=== PATIENT | male | born 1965 | race Caucasian/White ===

== ENCOUNTER 2024-03-30 05:16 | Emergency (ER) | payer MEDICAID ==
[~2024-03-30] VITALS: Ht 172.7 cm; Wt 93.5 kg
[2024-03-30] MEDS: ibuprofen 200mg tablet PO ONE (05:29)
[2024-03-30 06:48] VITALS: PULSE 85; PULSE 86; RESP 18; RESP 20; O2SAT 97; O2SAT 98
[2024-03-30] MEDS: ipratropium/albuterol 3ml nebule NEB ONE (06:50)
[2024-03-30 07:22] LABS: BASOPHILS % (AUTO) 0.5 % (0-1); EOSINOPHILS % (AUTO) 0 % (0-6); HEMOGLOBIN 12.8 g/dl (14.0-17.9); LYMPHOCYTES # (AUTO) 0.3 X10'3 (1.1-4.8); LYMPHOCYTES % (AUTO) 4.6 % (21-51); MEAN CORPUSCULAR HEMOGLOBIN 32.5 PG (27.0-31.0); MEAN CORPUSCULAR HGB CONC 34.6 g/dL (33.0-36.5); MEAN PLATELET VOLUME 7.4 FL (7.4-10.4); MONOCYTES # (AUTO) 0.5 X10'3 (0-0.9); MONOCYTES % (AUTO) 6.6 % (2-12); NEUTROPHILS # (AUTO) 6.3 X10'3 (1.8-7.7); NEUTROPHILS % (AUTO) 88.3 % (42-75); PLATELET COUNT 296 X10'3 (140-440); RED BLOOD COUNT 3.94 X10'6 (4.70-6.10); RED CELL DISTRIBUTION WIDTH 13.2 % (11.5-14.5); WHITE BLOOD COUNT 7.1 X10'3 (4.5-11.0)
[2024-03-30 07:24] LABS: ALBUMIN 3.9 G/DL (3.4-5.0); ANION GAP 10 (8-16); BLOOD UREA NITROGEN 10 MG/DL (7-18); BUN/CREATININE RATIO 7.6 (10.0-20.0); CALCIUM 8.9 MG/DL (8.5-10.1); CHLORIDE 101 MMOL/L (99-107); CREATININE 1.31 MG/DL (0.60-1.10); GLUCOSE 130 MG/DL (70-104); POTASSIUM 3.6 MMOL/L (3.5-5.1); SODIUM 138 MMOL/L (135-145); TOTAL CARBON DIOXIDE 27.5 MMOL/L (24-32); eCRCL 59 ML/MIN; eGFR 56 ML/MIN
[2024-03-30] MEDS: dexamethasone sod phosphate 10mg/ml inj PO STA (07:35)
[2024-03-30] MEDS: oseltamivir phos 75mg capsule PO ONE (08:17)
[2024-03-30] MEDS ORDERED: LISI10TA27 PO (08:27)
[2024-03-30] MEDS ORDERED: TAM75C PO (08:27)
[2024-03-30] MEDS ORDERED: BENZ-38 PO (08:27)
[2024-03-30] MEDS ORDERED: ALBU18HF2 INH (08:27)
[2024-03-30 08:47] VITALS: BP 134/74; PULSE 80; RESP 16; TEMP 98.5; O2SAT 98
== END 2024-03-30 08:49 | disposition home or self-care (01) ==
LOC: ER 05:17
DX: J10.1 Influenza due to other identified influenza virus with other respiratory manifestations (principal); Z20.822 Contact with and (suspected) exposure to COVID-19
CPT/HCPCS: 36415; 71045; 80048; 84145; 85025; 87502; 87503; 87811; 94640; 99284; J1100

== ENCOUNTER 2024-08-12 10:04 | Emergency (ER) | payer MEDICAID ==
[~2024-08-12] VITALS: Ht 170.2 cm; Wt 91.8 kg
[~2024-08-12 10:04] MED LIST: ALBU18HF2 INH; LISI10TA27 PO
[2024-08-12 10:10] VITALS: TEMP 97.8
[2024-08-12 10:36] LABS: BASOPHILS % (AUTO) 0.4 % (0-1); EOSINOPHILS % (AUTO) 0.2 % (0-6); HEMATOCRIT 40.9 % (42.0-52.0); LYMPHOCYTES # (AUTO) 1.2 X10'3 (1.1-4.8); LYMPHOCYTES % (AUTO) 11.1 % (21-51); MEAN CORPUSCULAR HEMOGLOBIN 31.1 PG (27.0-31.0); MEAN CORPUSCULAR HGB CONC 34.2 g/dL (33.0-36.5); MEAN PLATELET VOLUME 7.2 FL (7.4-10.4); MONOCYTES # (AUTO) 0.5 X10'3 (0-0.9); MONOCYTES % (AUTO) 5.1 % (2-12); NEUTROPHILS # (AUTO) 8.7 X10'3 (1.8-7.7); NEUTROPHILS % (AUTO) 83.2 % (42-75); PLATELET COUNT 373 X10'3 (140-440); RED BLOOD COUNT 4.49 X10'6 (4.70-6.10); RED CELL DISTRIBUTION WIDTH 13.2 % (11.5-14.5); WHITE BLOOD COUNT 10.5 X10'3 (4.5-11.0)
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
[2024-08-12 10:48] LABS: ALANINE AMINOTRANSFERASE 32 U/L (12-78); ALBUMIN 3.8 G/DL (3.4-5.0); ALBUMIN/GLOBULIN RATIO 1.2 (1.1-1.5); ALKALINE PHOSPHATASE 103 IU/L (46-116); ANION GAP 10 (8-16); ASPARTATE AMINO TRANSFERASE 24 U/L (10-37); BILIRUBIN,TOTAL 0.2 MG/DL (0.1-1.0); BLOOD UREA NITROGEN 10 MG/DL (7-18); BUN/CREATININE RATIO 11.6 (10.0-20.0); CALCIUM 8.5 MG/DL (8.5-10.1); CHLORIDE 104 MMOL/L (99-107); CREATININE 0.86 MG/DL (0.60-1.10); GLUCOSE 102 MG/DL (70-104); POTASSIUM 3.9 MMOL/L (3.5-5.1); PRO BRAIN NATRIURETIC PEPTIDE 124 PG/ML (0-125); SODIUM 143 MMOL/L (135-145); TOTAL CARBON DIOXIDE 29.4 MMOL/L (24-32); TOTAL PROTEIN 6.9 G/DL (6.4-8.2); eCRCL 88 ML/MIN; eGFR > 90 ML/MIN
--- NOTE | 2024-08-12 11:06 | RADIOLOGY REPORT ---
CHEST RADIOGRAPH Indication: CP Technique: Single frontal view of the chest was obtained Comparison: DI CHEST,SINGLE VIEW on DOS: 03/30/24 FINDINGS: Lines and Tubes: None Lungs: No focal consolidation. Pleura: No effusion. No pneumothorax. Cardiomediastinal contours: Unremarkable Bones: No acute osseous abnormality. IMPRESSION: 1. No acute cardiopulmonary disease.
[2024-08-12] MEDS: normal saline 1000ML IV soln IVB ONE (14:12)
[2024-08-12] MEDS: ketorolac trometh 15mg/ml vial 15 MG/ML ML IV ONE (14:13)
[2024-08-12 16:11] VITALS: O2SAT 96
[2024-08-12 16:51] VITALS: BP 147/86; PULSE 74; RESP 11
--- NOTE | 2024-08-12 18:16 | ELECTROCARDIOGRAPH REPORT ---
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
== END 2024-08-12 16:49 | disposition home or self-care (01) ==
LOC: ER 10:04
DX: S29.8XXA Other specified injuries of thorax, initial encounter (principal); F10.129 Alcohol abuse with intoxication, unspecified; Z59.00 Homelessness unspecified; Z79.899 Other long term (current) drug therapy; Y90.9 Presence of alcohol in blood, level not specified; W18.30XA Fall on same level, unspecified, initial encounter; Y93.89 Activity, other specified; Y92.89 Other specified places as the place of occurrence of the external cause; Y99.8 Other external cause status
CPT/HCPCS: 36415; 71045; 80053; 83880; 84484; 85025; 93005; 96361; 96374; 99285; J1885; J7030

== ENCOUNTER 2024-10-06 17:55 | Inpatient (IN) | payer MEDICAID ==
[~2024-10-06] VITALS: Ht 170.2 cm; Wt 84.1 kg
--- NOTE | 2024-10-06 18:26 | ELECTROCARDIOGRAPH REPORT ---
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
[2024-10-06 18:28] LABS: MEAN PLATELET VOLUME 7.1 FL (7.4-10.4); RED CELL DISTRIBUTION WIDTH 13.3 % (11.5-14.5)
[2024-10-06 18:34] LABS: CREATININE 0.95 MG/DL (0.60-1.10); ETHANOL 43 MG/DL (<10); TOTAL CARBON DIOXIDE 25.1 MMOL/L (24-32); eCRCL 78 ML/MIN; eGFR 81 ML/MIN
[2024-10-06 18:38] LABS: APTT 34 SECONDS (22-32); INR 1.0 INR
--- NOTE | 2024-10-06 18:46 | RADIOLOGY REPORT ---
CT CT STROKE ALERT Indication: Stroke Alert EXAM DATE: 10/06/2024 06:16 PM COMPARISON: None TECHNIQUE: CT of the head without intravenous contrast. RADIATION DOSE: CTDIvol: 56 mGy, DLP: 1026 mGy*cm FINDINGS: Examination is degraded by motion. There is no intracranial hemorrhage. There is no extra-axial fluid, mass, mass effect or midline shif t. The ventricles are midline and normal in size. Basilar cisterns are patent. There are moderate per iventricular and subcortical white matter chronic microvascular ischemic changes. Mild global cerebra l volume loss. 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 The paranasal sinuses and mastoids are well-pneumatized. Imaged portion of the orbits are unremarkabl e. IMPRESSION: No intracranial hemorrhage or mass effect. Moderate chronic microvascular ischemic changes. Mild global cerebral volume loss.
--- NOTE | 2024-10-06 19:05 | RADIOLOGY REPORT ---
CHEST RADIOGRAPH Indication: Stroke Alert Technique: Single frontal view of the chest was obtained Comparison: DI CHEST,SINGLE VIEW on DOS: 08/12/24, DI CHEST,SINGLE VIEW on DOS: 03/30/24 FINDINGS: Lines and Tubes: None Lungs: No focal consolidation. Pleura: No effusion. No pneumothorax. Cardiomediastinal contours: Unremarkable Bones: No acute osseous abnormality. IMPRESSION: No acute cardiopulmonary disease.
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
[2024-10-06] MEDS: aspirin 81mg, enteric-coated 1 TAB TABLET.DR PO ONE (20:57)
[2024-10-06] MEDS: clopidogrel 300mg tablet PO ONE (21:05)
[2024-10-06] MEDS ORDERED: magnesium sulf-water 2g/50mL 50 ML IV PRN (21:15)
[2024-10-06] MEDS ORDERED: bisacodyl 10mg suppository rectal RC PRN (21:15)
[2024-10-06] MEDS ORDERED: ondansetron/PF 4mg/2ml inj IV PRN (21:15)
[2024-10-06] MEDS ORDERED: potassium Cl 40MEQ/1/2NS 520ml 520 ML IV PRN (21:15)
[2024-10-06] MEDS ORDERED: magnesium sulf-water 4G/100mL 100 ML IV PRN (21:15)
[2024-10-06] MEDS ORDERED: magnesium hydroxide 30ml (MOM) UD suspension PO PRN (21:15)
[2024-10-06] MEDS ORDERED: potassium Cl 20 mEq SR tablet PO PRN ×2 (21:15)
[2024-10-06] MEDS ORDERED: magnesium Cl slow-release 64mg tablet PO PRN (21:15)
[2024-10-06] MEDS ORDERED: mag hydrox/Alum hydrox/simeth 30ml oral suspension PO PRN (21:15)
[2024-10-06 21:47] LABS: PRO BRAIN NATRIURETIC PEPTIDE 162 PG/ML (0-125)
--- NOTE | 2024-10-06 22:01 | RADIOLOGY REPORT ---
INDICATION: suspected pontine stroke COMPARISON: None TECHNIQUE: CTA imaging of the head and neck was performed following the uneventful administration of intravenous contrast. Sagittal and coronal reformatted images were obtained from the source data. All CT scans at this medical facility are performed using dose modulation techniques as appropriate to a performed exam including the following: Automated exposure control was utilized; Adjustment of the M A And/or KV according to patient size; And use of iterative reconstruction technique. 3D MIP post-processing of the source data set was performed and reviewed by the radiologist. Radiation Dose Information: CT Dose: CTDI volume is 35 mGy. Dose-length product is 525 mGy*cm FINDINGS: 3 vessel arch. The subclavian artery are within normal limits. There is minimal plaque at the left ca rotid bulb extending into the left proximal internal carotid artery without significant stenosis. The petrous, cavernous and clinoid portions of the internal carotid artery are within normal limits. The anterior cerebral artery and middle cerebral arteries are within normal limits. The vertebral arteries are symmetric bilaterally. The basilar artery is patent. The posterior cerebra l arteries are within normal limits. The pica-aica complex appears unremarkable. Lung apices are unremarkable. No enlarged cervical lymph nodes. The bones are unremarkable. Moderate- severe degenerative changes within the cervical spine. IMPRESSION: 1. No acute vascular abnormality within the major vessels of the head or neck 2. Mild calcific plaque within the left carotid bulb extending to the left proximal internal carotid artery
[2024-10-06] MEDS: normal saline 1000ml 1,000 ML IV SCH (22:02)
[2024-10-06 22:51] VITALS: BP 148/94; PULSE 81; RESP 20; TEMP 97.7; O2SAT 96
[2024-10-07] VITALS (8 sets, daily range): BP systolic 149–170; BP diastolic 95–101; PULSE 65–74; RESP 15–20; TEMP 97.3–98.4; O2SAT 93–98
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
[2024-10-07] MEDS ORDERED: ipratropium/albuterol 3ml nebule NEB PRN (01:50)
[2024-10-07 02:30] LABS: LEUKOCYTE ESTERASE ,URINE NEGATIVE (Neg); NITRITES, URINE NEGATIVE (Neg); OCCULT BLOOD,URINE NEGATIVE (Neg)
[2024-10-07 02:31] LABS: UA COLLECTION TYPE CLN CATCH MIDSTREAM
[2024-10-07 02:41] LABS: URINE AMPHETAMINE SCREEN POSITIVE (Neg); URINE BARBITUATE SCREEN NEGATIVE (Neg); URINE BENZODIAZEPINES SCREEN NEGATIVE (Neg); URINE CANNABINOID SCREEN NEGATIVE (Neg); URINE COCAINE SCREEN NEGATIVE (Neg); URINE METHADONE SCREEN NEGATIVE (Neg); URINE OPIATE SCREEN NEGATIVE (Neg); URINE PHENCYCLIDINE SCREEN NEGATIVE (Neg)
[2024-10-07 06:13] LABS: MEAN PLATELET VOLUME 7.3 FL (7.4-10.4); RED CELL DISTRIBUTION WIDTH 13.3 % (11.5-14.5)
[2024-10-07 06:30] LABS: CHOL/HDL RATIO 3.1 (0.00-4.99); CREATININE 0.89 MG/DL (0.60-1.10); ETHANOL < 10 MG/DL (<10); LDL CHOLESTEROL 85 MG/DL (50-100); TOTAL CARBON DIOXIDE 28.0 MMOL/L (24-32); eCRCL 84 ML/MIN; eGFR 87 ML/MIN
[2024-10-07] MEDS: nicotine 7mg patch - 24hr TD SCH (07:52)
[2024-10-07] MEDS: docusate sod 100mg capsule PO SCH (07:53)
[2024-10-07] MEDS: aspirin 81mg, enteric-coated 1 TAB TABLET.DR PO SCH (07:53)
[2024-10-07] MEDS: K and/or MAG REPLACEMENT MC SCH (08:00)
[2024-10-07] MEDS: HYDROcodone/acetaminophen 5mg/325mg tablet PO PRN (08:01)
--- NOTE | 2024-10-07 09:47 | PROGRESS NOTE ---
Daily Progress Note Providers to CC No new complaint today resting comfortably in the bed ~ Central Line/PICC still needed: No Jones-Non Protocol Jones Indications Met/Not Met: F/C Indications Not Met Antibiotic Timeout Antibiotic Ordered?: No MRSA Education MRSA Education Provided to pt: No Subjective As above Objective Vital Signs Date Time Temp Pulse Resp B/P (MAP) Pulse Ox O2 Delivery O2 Flow Rate FiO2 10/07/24 08:01 16 10/07/24 07:53 65 10/07/24 03:41 93 Room Air* 0 21 10/07/24 02:00 98.2 149/96 (113) Vital signs, stable ,afebrile. Pulse Oximetry reflects adequate oxygenation. BMI is twenty-nine, weight 84 kg General: well developed, well nourished. Awake , alert, and oriented x4, resting comfortably in the bed, in no acute distress . Skin: Warm, dry, no pallor, no rash or petechiae. HEENT: Atraumatic, normocephalic, EOMI, anicteric sclera B; pink conjunctiva; PERRLA, normal oropharynx, moist oral and nasal mucosa. Tympanic membrane , nose , throat clear. Neck: Trachea midline. Supple, full range of motion, no JVD, bruit , hepatojugular reflex , lymphadenopathy or masses, or other lesions Cardiac: Regular rhythm, regular rate no murmurs, rubs, or gallops. Normal S1 and S2, no S3 noticed. PMI is normal. Respiratory: Equal breath sounds bilaterally, no tachypnea; lungs clear to auscultation bilaterally, no wheezing ,rub or rales, or crackles. Chest wall is symmetric and without deformity. No signs of trauma. Chest wall is nontender. No signs of respiratory distress. Resonance is normal upon percussion bilaterally. Gastrointestinal: Abdomen symmetric, non-distended, soft, non-tender, normal bowel sounds x4 quadrant, normoactive, no hepatosplenomegaly , no masses , no bruit, no flank pain bilaterally. No voluntary guarding, rebound, or rigidity. No tenderness to percussion. No pulsatile masses. Equal femoral pulses. No Gutiérrez's sign or McBurney point tenderness. Back; no CVA tenderness bilaterally, no deformities. Neck and back are without deformity as well. No tenderness noted on palpation of the spinous processes. Spinous processes are midline. Cervical, thoracic, and lumbar paraspinal muscles are not tender and are without spasm. : normal external genitalia, without lesions, swelling, masses or tenderness. Musculoskeletal: Extremities, normal range of motion, non-tender, muscle strength 5/5 x 4. Negative Homans signs bilaterally on lower extremity. Distal pulses full symmetrical, no clubbing, cyanosis , edema. Neurological: Speech is clear, alert, and oriented x 4. No motor or sensory deficit, deep tendon reflexes normal, cerebellar intact. Cranial nerves II-XII intact. Psych: Alert and or appropriate, normal affect. Vascular: Good distal pulses, which are equal x4; capillary refill less than 2 seconds. Lymphatic, no lymphadenopathy. 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 Moderate chronic microvascular ischemic changes. Mild global cerebral volume loss. CTA head and neck shows Mild calcific plaque within the left carotid bulb extending to the left proximal internal carotid artery Follow up with the MRI [facility] tele neurology consulted who recommended loading dose of aspirin and Plavix 300 mg followed by aspirin 81 mg and Plavix 75 mg for 21 days. Continue on antiplatelet agent either aspirin/Plavix thereafter. Follow up with lipid panel, A1c 5.4. Goal LDL less than 70. Started on atorvastatin 80 mg p.o. daily TSH WNL Neurochecks q.4 hours, follow up with Nephrology with the MRI results Hypertension, poor control History of COPD, not in exacerbation Continue home medication lisinopril 10 mg and duo nebs q.4 PRN. Permissive hypertension, maintain his BP less than 210/110 mmHg. 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 social media & mobile manager consult Nicotine patch 7 mg Code Status: DNR DVT Prophylaxis: Aspirin and Plavix Analgesia/Sedation: [place] p.r.n. Lines/Tubes: PIV Gi Prophylaxis: None Nutrition: Regular diet after passing swallow evaluation PT: Yes Prognosis: Guarded Sepsis Screening Reassessment Date: Oct 07, 2024 Date of Service: Oct 07, 2024 Billing Provider: DANN WHITNEY MD Common Visit Codes: [id number] INP/OBS CARE (HIGH) DANN WHITNEY MD Oct 07, 2024 09:47
--- NOTE | 2024-10-07 14:10 | CARDIOLOGY REPORT ---
APPROVED REPORT EXAM: Comprehensive 2D, Doppler, and color-flow Echocardiogram. Patient Location: 401 Blood Pressure: 149/96 mmHg Heart Rate: 67 bpm Indications CVA/TIA (Saline Bubble Study not Ordered) ProBNP: 162 NO MELTING SUPERVISOR No Previous ECHO 2D Dimensions LA Diam2.9 cm IVSd 0.8 (0.7-1.1cm) LVDd 5.3 cm PWd 0.8 (0.7-1.1cm) IVSs 1.4 (0.8-1.2cm) LVDs 3.0 (2.5-4.0cm) PWs 1.6 (0.8-1.2cm) LVOT Diameter 2.05 (1.8-2.4cm) LVEF(%) 74.4 (>50%) Ao Asc Diam.3.95 cm IVC 14.91 mmFS (%) 43.6 % SV 102.8 ml CO 7.0 L/min M-Mode Dimensions Left Atrium(MM) 3.57 (2.5-4.0cm) Aortic Root 3.98 (2.2-3.7cm) Aortic Cusp Exc 1.88 (1.5-2.0cm) MV EPSS 1.3 (<0.5cm) Aortic Valve AoV Peak Gregorio. 150.5 cm/s AoV VTI 26.7 cm AO Peak GR. 9.1 mmHg AO Mean GR. 6 mmHg LVOT VTI 23.39 cm LVOT Peak Gregorio. 120.1 cm/s PHILLIP(VTI)/BSA 2.89 cm2/m2 PHILLIP (VTI) 2.89 cm2 Mitral Valve MV E Velocity 52.4 cm/s MV Peak Gr. 1 mmHg MV DECEL TIME 188 ms MV A Velocity 69.8 cm/s MV PHT 72 ms E/A Ratio 0.8 MVA (PHT) 3.06 cm2 MV VMax56.0 cm/s TDI Lateral E' P. V10.47 cm/s E/Lateral E' 5.0 Tricuspid Valve TR P. Velocity 145 cm/s RAP ESTIMATE 10 mmHg TR Peak Gr. 8 mmHg RVSP 18 mmHg LEFT VENTRICLE Normal LV size and wall thickness. Overall systolic function is normal. Overall LVEF is 70-75%. RIGHT VENTRICLE RV is normal size and function. ATRIA The left atrium size is normal. AORTIC VALVE Trileaflet AV appears mildly sclerotic without stenosis. No insufficiency. MITRAL VALVE Mitral valve leaflets are mildly thickened with mild annular calcification. TRICUSPID VALVE The tricuspid valve is normal in structure with trace regurgitation. PULMONIC VALVE The pulmonary valve is normal in structure with physiologic insufficiency. GREAT VESSELS The aortic root is normal in size. The ascending aorta is normal in size. The IVC is normal in size a nd collapses >50% with inspiration. PERICARDIUM Normal pericardium. No effusion. Other Information Study Quality: Adequate Conclusion Overall LVEF is 70-75%. Normal LV size and wall thickness. Overall systolic function is normal. RV is normal size and function. Trileaflet AV appears mildly sclerotic without stenosis. No insufficiency. Mitral valve leaflets are mildly thickened with mild annular calcification. The tricuspid valve is normal in structure with trace regurgitation. The pulmonary valve is normal in structure with physiologic insufficiency. Normal pericardium. No effusion.
--- NOTE | 2024-10-07 18:43 | RADIOLOGY REPORT ---
EXAM: MR MRI HEAD CLINICAL HISTORY: Pontine stroke COMPARISON: CT head 10/06/2024 TECHNIQUE: Multiplanar, multisequence magnetic resonance imaging of the brain was performed without intravenous contrast. FINDINGS: 1 x 0.5 cm focus of diffusion restriction over the left paramedian inferior midbrain. Foci of T2 craig e through within the bilateral centrum semiovale . Study is limited by motion artifact, most notably the blood sensitive sequence. Mild diffuse brain at rophy. Moderate chronic small-vessel ischemic changes with bilateral basal ganglia , left thalamic and bilateral pontine chronic lacunar infarcts. No obvious hemorrhages, masses, mass effect, midline shift or herniation.No intra-axial or extra-axia l fluid collections. No evidence of hydrocephalus. The basal cisterns are patent. The vascular flow v oids maintained. The pituitary gland, sella and parasellar regions are unremarkable. The cerebellar tonsils are in no rmal position. The cerebellum is unremarkable. The orbits and globes are unremarkable. Minimal mucoperiosteal thickening of the ethmoid air cells. T he remainder of the paranasal sinuses and mastoids are clear. There are No worrisome calvarial lesion s. IMPRESSION: 1 x 0.5 cm focus of acute infarct over the left paramedian inferior midbrain.
[2024-10-07] MEDS ORDERED: albuterol 2.5 MG/3 ML nebule NEB PRN (20:00)
[2024-10-08 02:00] VITALS: BP 137/95; PULSE 70; RESP 20; TEMP 98; O2SAT 97
[2024-10-08 06:00] VITALS: BP 174/112; PULSE 66; RESP 18; TEMP 98.1; O2SAT 98
[2024-10-08 06:59] LABS: INR 1.0 INR
[2024-10-08 07:10] LABS: MEAN PLATELET VOLUME 7.3 FL (7.4-10.4); RED CELL DISTRIBUTION WIDTH 13.2 % (11.5-14.5)
[2024-10-08 07:13] LABS: CREATININE 0.97 MG/DL (0.60-1.10); PHOSPHORUS 2.5 MG/DL (2.3-4.5); TOTAL CARBON DIOXIDE 28.2 MMOL/L (24-32); eCRCL 77 ML/MIN; eGFR 79 ML/MIN
[2024-10-08 10:00] VITALS: BP 180/117; PULSE 78; RESP 18; TEMP 98.1; O2SAT 96
--- NOTE | 2024-10-08 11:44 | PROGRESS NOTE ---
Daily Progress Note Providers to CC No new complaint today, resting comfortably in the bed, had breakfast ~ Central Line/PICC still needed: No Jones-Non Protocol Jones Indications Met/Not Met: F/C Indications Not Met Antibiotic Timeout Antibiotic Ordered?: No MRSA Education MRSA Education Provided to pt: No Subjective As above Objective Vital Signs Date Time Temp Pulse Resp B/P (MAP) Pulse Ox O2 Delivery O2 Flow Rate FiO2 10/08/24 10:35 78 10/08/24 06:00 98.1 18 174/112 (132) 98 Room Air 10/07/24 11:56 0 21 Vital signs, stable ,afebrile. Pulse Oximetry reflects adequate oxygenation. Elevated blood pressure, secondary to permissive hypertension noticed General: well developed, well nourished. Awake , alert, and oriented x4, resting comfortably in the bed, in no acute distress . Skin: Warm, dry, no pallor, no rash or petechiae. HEENT: Atraumatic, normocephalic, EOMI, anicteric sclera B; pink conjunctiva; PERRLA, normal oropharynx, moist oral and nasal mucosa. Tympanic membrane , nose , throat clear. Neck: Trachea midline. Supple, full range of motion, no JVD, bruit , hepatojugular reflex , lymphadenopathy or masses, or other lesions Cardiac: Regular rhythm, regular rate no murmurs, rubs, or gallops. Normal S1 and S2, no S3 noticed. PMI is normal. Respiratory: Equal breath sounds bilaterally, no tachypnea; lungs clear to auscultation bilaterally, no wheezing ,rub or rales, or crackles. Chest wall is symmetric and without deformity. No signs of trauma. Chest wall is nontender. No signs of respiratory distress. Resonance is normal upon percussion bilaterally. Gastrointestinal: Abdomen symmetric, non-distended, soft, non-tender, normal bowel sounds x4 quadrant, normoactive, no hepatosplenomegaly , no masses , no bruit, no flank pain bilaterally. No voluntary guarding, rebound, or rigidity. No tenderness to percussion. No pulsatile masses. Equal femoral pulses. No Gutiérrez's sign or McBurney point tenderness. Back; no CVA tenderness bilaterally, no deformities. Neck and back are without deformity as well. No tenderness noted on palpation of the spinous processes. Spinous processes are midline. Cervical, thoracic, and lumbar paraspinal muscles are not tender and are without spasm. : normal external genitalia, without lesions, swelling, masses or tenderness. Musculoskeletal: Extremities, normal range of motion, non-tender, muscle strength 5/5 x 4. Negative Homans signs bilaterally on lower extremity. Distal pulses full symmetrical, no clubbing, cyanosis , edema. Neurological: Speech is clear, alert, and oriented x 4. No motor or sensory deficit, deep tendon reflexes normal, cerebellar intact. Cranial nerves II-XII intact. Psych: Alert and or appropriate, normal affect. Vascular: Good distal pulses, which are equal x4; capillary refill less than 2 seconds. Lymphatic, no lymphadenopathy. 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 Moderate chronic microvascular ischemic changes. Mild global cerebral volume loss. CTA head and neck shows Mild calcific plaque within the left carotid bulb extending to the left proximal internal carotid artery On MRI, consistent with left mid brain CVA acute Virtual neurology consult pending [facility] tele neurology consulted who recommended loading dose of aspirin and Plavix 300 mg followed by aspirin 81 mg and Plavix 75 mg for 21 days. Continue on antiplatelet agent either aspirin/Plavix thereafter. Follow up with lipid panel, A1c 5.4. Goal LDL less than 70. Started on atorvastatin 80 mg p.o. daily TSH WNL Neurochecks q.4 hours, follow up with Nephrology with the MRI results Hypertension, poor control History of COPD, not in exacerbation Continue home medication lisinopril 10 mg and duo nebs q.4 PRN. Permissive hypertension, maintain his BP less than 210/110 mmHg. Chronic methamphetamine abuse, including ongoing Acute amphetamine intoxication Chronic heavy alcohol use , including ongoing active tobacco use Substance abuse navigator, social service liaison consult Nicotine patch 7 mg Code Status: DNR DVT Prophylaxis: Aspirin and Plavix Analgesia/Sedation: [place] p.r.n. Lines/Tubes: PIV Gi Prophylaxis: None Nutrition: Regular diet after passing swallow evaluation PT: Yes Prognosis: Guarded Date of Service: Oct 08, 2024 Billing Provider: DANN WHITNEY MD Common Visit Codes: [id number] INP/OBS CARE(HIGH) DANN WHITNEY MD Oct 08, 2024 11:44
[2024-10-08 14:00] VITALS: BP 167/102; PULSE 74; RESP 14; TEMP 98.1; O2SAT 100
[2024-10-08 18:30] VITALS: BP 176/94; PULSE 73; RESP 21; TEMP 96.4; O2SAT 96
--- NOTE | 2024-10-08 21:59 | [facility] CONSULT REPORT ---
[facility] Procedure Note [facility] Procedure Note Consult [facility] Note # Demographics Consult Type: General Neurology Patient Location: Inpatient First Name: Kevin Last Name: Celso Date of : 1965 Age: 59 Gender: Male Facility: [facility] Time of Initial Page (): 10/08/2024 17:13 Time of Return Call (): 10/08/2024 17:13 # HPI History: 59yom who presented with new onset diplopia. MRI with L paramedian inferior midbrain infarct. # Scores Time of exam and NIHSS (): 10/08/2024 21:45 Level of Consciousness 1a: [0] = Alert; keenly responsive LOC Questions 1b: [0] = Answers both questions correctly LOC Commands 1c: [0] = Performs both tasks correctly Best Gaze 2: [0] = Normal Visual 3: [0] = No visual loss Facial Palsy 4: [1] = Minor paralysis Motor Arm Left 5a: [0] = No drift Motor Arm Right 5b: [0] = No drift Motor Leg Left 6a: [0] = No drift Motor Leg Right 6b: [0] = No drift Limb Ataxia 7: [0] = Absent Sensory 8: [0] = Normal Best Language 9: [0] = No aphasia Dysarthria 10: [1] = [id number] dysarthria Extinction and Inattention 11: [0] = No abnormality NIHSS Total: 2 # Exam Cranial Nerves: L VIANNEY # Data Head CT: - no bleed - per radiologist read - preliminarily reviewed by me, please refer to radiology read for official reading CTA Head: - no large vessel occlusion - per radiologist read MRI: acute infarct over L paramedian inferior midbrain # Assessment Impression: In patients presenting with high risk TIA or minor stroke, treatment for 21 days with dual antiplatelet therapy (aspirin and plavix) begun within 24 hours can be beneficial for early secondary stroke prevention (CHANCE 2013, POINT 2018). # Plan Thrombolytic/Intervention: NOT IV Thrombolysis or IA Intervention candidate Thrombolytic Exclusion: > 4.5 hours Intraarterial Exclusion: - clinical exam not consistent with presence of large vessel occlusion (LVO), can reconsider if LVO found on vascular imaging Labs: - lipid panel - hemoglobin A1c - CBC - basic metabolic panel - urine drug screen - troponin Diagnostic Test: - echo with bubble study Therapy/Evaluation: - PT/OT evaluation - speech/swallow consultation Medication: - start statin with goal of LDL < 70 - aspirin 81 mg PLUS clopidogrel (Plavix) 75 mg for 21 days, then monotherapy therafter Other: - If patient has any neurological deterioration please call me back immediately - permissive hypertension - telemetry monitoring - LDL < 70 - I have discussed my recommendations with the referring provider - provide smoking cessation resources and counseling to patient Additional Recommendations: - Risk factor modification, including smoking cessation and alcohol moderation if appropriate - Monitor glucose and correct as needed - Outpatient cardiac monitoring # Logistics Attestation of consult completion: The patient is located at: [facility]. Facility staff participated in the visit. I performed this telemedicine visit from my offsite office utilizing interactive 2 way audio and visual telecommunication technology. Total time spent in telemedicine encounter: I spent 23 minutes reviewing clinical data and/or imaging, obtaining history, examining the patient, communicating with the onsite care team, and in preparation of this report. # Demographics First Name: Kevin Last Name: Celso Facility: [facility] Neuro Consult Order placed for: Yes SAMUEL MONROE MD Oct 08, 2024 21:59
[2024-10-08 22:00] VITALS: BP 170/107; PULSE 72; RESP 15; TEMP 98.1; O2SAT 96
[2024-10-09] VITALS (12 sets, daily range): BP systolic 140–175; BP diastolic 86–115; PULSE 68–82; RESP 13–20; TEMP 97.2–99; O2SAT 93–97
[2024-10-09 06:47] LABS: MEAN PLATELET VOLUME 7.4 FL (7.4-10.4); RED CELL DISTRIBUTION WIDTH 13.3 % (11.5-14.5)
[2024-10-09 06:55] LABS: INR 1.0 INR
[2024-10-09 07:28] LABS: CREATININE 0.75 MG/DL (0.60-1.10); PHOSPHORUS 3.2 MG/DL (2.3-4.5); TOTAL CARBON DIOXIDE 23.7 MMOL/L (24-32); eCRCL 99 ML/MIN; eGFR > 90 ML/MIN
--- NOTE | 2024-10-09 15:34 | PROGRESS NOTE ---
Daily Progress Note Providers to CC Somnolent, resting comfortably in the bed, good appetite ~ Central Line/PICC still needed: No Jones-Non Protocol Jones Indications Met/Not Met: F/C Indications Not Met Antibiotic Timeout Antibiotic Ordered?: No MRSA Education MRSA Education Provided to pt: No Subjective As above Objective Vital Signs Date Time Temp Pulse Resp B/P (MAP) Pulse Ox O2 Delivery O2 Flow Rate FiO2 10/09/24 12:02 97.7 78 14 140/86 (104) 96 Room Air 10/07/24 11:56 0 21 Vital signs, stable ,afebrile. Pulse Oximetry reflects adequate oxygenation. General: well developed, well nourished. Awake , alert, and oriented x4, resting comfortably in the bed, in no acute distress . Skin: Warm, dry, no pallor, no rash or petechiae. HEENT: Atraumatic, normocephalic, EOMI, anicteric sclera B; pink conjunctiva; PERRLA, normal oropharynx, moist oral and nasal mucosa. Tympanic membrane , nose , throat clear. Neck: Trachea midline. Supple, full range of motion, no JVD, bruit , hepatojugular reflex , lymphadenopathy or masses, or other lesions Cardiac: Regular rhythm, regular rate no murmurs, rubs, or gallops. Normal S1 and S2, no S3 noticed. PMI is normal. Respiratory: Equal breath sounds bilaterally, no tachypnea; lungs clear to auscultation bilaterally, no wheezing ,rub or rales, or crackles. Chest wall is symmetric and without deformity. No signs of trauma. Chest wall is nontender. No signs of respiratory distress. Resonance is normal upon percussion bilaterally. Gastrointestinal: Abdomen symmetric, non-distended, soft, non-tender, normal bowel sounds x4 quadrant, normoactive, no hepatosplenomegaly , no masses , no bruit, no flank pain bilaterally. No voluntary guarding, rebound, or rigidity. No tenderness to percussion. No pulsatile masses. Equal femoral pulses. No Gutiérrez's sign or McBurney point tenderness. Back; no CVA tenderness bilaterally, no deformities. Neck and back are without deformity as well. No tenderness noted on palpation of the spinous processes. Spinous processes are midline. Cervical, thoracic, and lumbar paraspinal muscles are not tender and are without spasm. : normal external genitalia, without lesions, swelling, masses or tenderness. Musculoskeletal: Extremities, normal range of motion, non-tender, muscle strength 5/5 x 4. Negative Homans signs bilaterally on lower extremity. Distal pulses full symmetrical, no clubbing, cyanosis , edema. Neurological: Speech is clear, alert, and oriented x 4. No motor or sensory deficit, deep tendon reflexes normal, cerebellar intact. Cranial nerves II-XII intact. Psych: Alert and or appropriate, normal affect. Vascular: Good distal pulses, which are equal x4; capillary refill less than 2 seconds. Lymphatic, no lymphadenopathy. 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 Moderate chronic microvascular ischemic changes. Mild global cerebral volume loss. CTA head and neck shows Mild calcific plaque within the left carotid bulb extending to the left proximal internal carotid artery On MRI, consistent with left mid brain CVA acute Virtual neurology consult completed [facility] tele neurology consulted who recommended loading dose of aspirin and Plavix 300 mg followed by aspirin 81 mg and Plavix 75 mg for 21 days. Continue on antiplatelet agent either aspirin/Plavix thereafter. Follow up with lipid panel, A1c 5.4. Goal LDL less than 70. Started on atorvastatin 80 mg p.o. daily TSH WNL Neurochecks q.4 hours, follow up with Nephrology with the MRI results Hypertension, poor control History of COPD, not in exacerbation Continue home medication lisinopril 10 mg and duo nebs q.4 PRN. Permissive hypertension, maintain his BP less than 210/110 mmHg. Chronic methamphetamine abuse, including ongoing Acute amphetamine intoxication Chronic heavy alcohol use , including ongoing active tobacco use Substance abuse navigator, social sciences department chair consult Nicotine patch 7 mg Code Status: DNR DVT Prophylaxis: Aspirin and Plavix Analgesia/Sedation: [place] p.r.n. Lines/Tubes: PIV Gi Prophylaxis: None Nutrition: Regular diet after passing swallow evaluation PT: Yes Prognosis: Guarded Date of Service: Oct 09, 2024 Billing Provider: DANN WHITNEY MD Common Visit Codes: [id number] INP/OBS CARE(HIGH) DANN WHTINEY MD Oct 09, 2024 15:34
[2024-10-10] VITALS (10 sets, daily range): BP systolic 149–176; BP diastolic 99–120; PULSE 64–82; RESP 16–20; TEMP 97.3–99; O2SAT 93–100
[2024-10-10 05:55] LABS: INR 1.1 INR; MEAN PLATELET VOLUME 7.2 FL (7.4-10.4); RED CELL DISTRIBUTION WIDTH 13.3 % (11.5-14.5)
[2024-10-10 06:24] LABS: CREATININE 0.65 MG/DL (0.60-1.10); PHOSPHORUS 3.4 MG/DL (2.3-4.5); TOTAL CARBON DIOXIDE 24.6 MMOL/L (24-32); eCRCL 114 ML/MIN; eGFR > 90 ML/MIN
--- NOTE | 2024-10-10 20:37 | PROGRESS NOTE ---
Daily Progress Note Providers to CC ~ Antibiotic Timeout Antibiotic Ordered?: No Subjective Patient was seen in his room patient was strongly advised to be compliant with blood pressure medication and risk and consequences of uncontrolled blood pressure discussed with the patient in visit. Patient did physical therapy today and recommended home independent. Objective Vital Signs Date Time Temp Pulse Resp B/P (MAP) Pulse Ox O2 Delivery O2 Flow Rate FiO2 10/10/24 19:17 16 10/10/24 19:13 70 10/10/24 18:54 Room Air 10/10/24 18:00 97.4 173/104 (127) 96 10/10/24 07:35 0 21 Result Diagram: 10/10/24 0509 10/10/24 0438 General-patient not in any acute distress, alert awake oriented, chronically ill-appearing HEENT-atraumatic normocephalic, neck supple without elevated JVD, no thyromegaly or carotid bruit. No lymphadenopathy bilaterally. Eyes-no icterus or pallor seen in eyes Chest-clear to auscultation bilaterally, breathing nonlabored no tachypnea, no wheezing, no crepitation, no crackles. Heart-S1-S2 normal, regular heart rate no murmur Abdomen bowel sounds positive on auscultation, soft nondistended nontender no guarding, no rigidity Skin no active skin rash Neurology-grossly intact, nonfocal alert awake oriented, no focal neurological deficit noticed during exam Extremity- no pedal edema able to move all 4 extremities Psychiatry - patient is not confused or agitated cooperated during physical examination Coagulation Studies Laboratory Tests Test 10/06/24 18:16 10/10/24 05:09 Activated Partial Thromboplast Time 34 SECONDS (22-32) H Prothrombin Time 11.0 SECONDS (9.0-12.0) INR International Normalized Ratio 1.1 INR Coagulation Comments Problem\Assessment\Plan Assessment/Plan 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 Moderate chronic microvascular ischemic changes. Mild global cerebral volume loss. CTA head and neck shows Mild calcific plaque within the left carotid bulb extending to the left proximal internal carotid artery On MRI, consistent with left mid brain CVA acute Virtual neurology consult completed [facility] tele neurology consulted who recommended loading dose of aspirin and Plavix 300 mg followed by aspirin 81 mg and Plavix 75 mg for 21 days. Continue on antiplatelet agent either aspirin/Plavix thereafter. Follow up with lipid panel, A1c 5.4. Goal LDL less than 70. Started on atorvastatin 80 mg p.o. daily TSH WNL Neurochecks q.4 hours, follow up with Nephrology with the MRI results Hypertension, poor control History of COPD, not in exacerbation Continue home medication lisinopril 10 mg and duo nebs q.4 PRN. Permissive hypertension, maintain his BP less than 210/110 mmHg. Chronic methamphetamine abuse, including ongoing Acute amphetamine intoxication Chronic heavy alcohol use , including ongoing active tobacco use Substance abuse navigator, addiction social worker consult Nicotine patch 7 mg Code Status: DNR DVT Prophylaxis: Aspirin and Plavix Analgesia/Sedation: [employer] p.r.n. Lines/Tubes: PIV Gi Prophylaxis: None Nutrition: Regular diet after passing swallow evaluation PT: Yes Patient's current condition is guarded we will plan to discharge patient in a.m. Date of Service: Oct 10, 2024 Billing Provider: RACQUEL ELLIS MD Common Visit Codes: [id number] INP/OBS CARE(HIGH) RACQUEL ELLIS MD Oct 10, 2024 20:37
[2024-10-11 03:18] VITALS: PULSE 72; RESP 16; O2SAT 97
[2024-10-11 05:02] LABS: MEAN PLATELET VOLUME 7.1 FL (7.4-10.4); RED CELL DISTRIBUTION WIDTH 13.2 % (11.5-14.5)
[2024-10-11 05:11] LABS: INR 1.1 INR
[2024-10-11 05:22] LABS: CREATININE 0.65 MG/DL (0.60-1.10); PHOSPHORUS 4.2 MG/DL (2.3-4.5); TOTAL CARBON DIOXIDE 27.7 MMOL/L (24-32); eCRCL 114 ML/MIN; eGFR > 90 ML/MIN
[2024-10-11 06:00] VITALS: BP 146/104; PULSE 70; RESP 18; TEMP 97.6; O2SAT 96
[2024-10-11] MEDS ORDERED: potassium Cl 20 mEq SR tablet PO PRN (06:30)
[2024-10-11] MEDS ORDERED: potassium Cl 40MEQ/1/2NS 520ml 520 ML IV PRN (06:30)
[2024-10-11] MEDS: potassium Cl 20 mEq SR tablet PO PRN (06:57)
[2024-10-11 07:56] VITALS: PULSE 70; RESP 16; O2SAT 95
[2024-10-11] MEDS ORDERED: CLOP75TA34 PO (09:58)
[2024-10-11] MEDS ORDERED: NOR5T PO (09:58)
[2024-10-11] MEDS ORDERED: ASPI-1071 PO (09:58)
[2024-10-11] MEDS ORDERED: ATOR20TA66 PO (09:58)
[2024-10-11] MEDS ORDERED: HYDR25TA5 PO (09:59)
[2024-10-11 10:00] VITALS: BP 177/109; PULSE 75; RESP 20; TEMP 98.3; O2SAT 98
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
== END 2024-10-11 11:30 | disposition home or self-care (01) | DRG 45 ==
LOC: ER 17:56 → ED HOLD 21:19 → ORTHO 4S 22:49
PROVIDERS: ADMIT Internal Medicine Critical Care Medicine; ATTEND Family Medicine
PROC: B3251ZZ Computerized Tomography (CT Scan) of Bilateral Common Carotid Arteries using Low Osmolar Contrast (ICD-10-PCS; principal; 2024-10-06)
PROC: B32G1ZZ Computerized Tomography (CT Scan) of Bilateral Vertebral Arteries using Low Osmolar Contrast (ICD-10-PCS; 2024-10-06)
PROC: B32R1ZZ Computerized Tomography (CT Scan) of Intracranial Arteries using Low Osmolar Contrast (ICD-10-PCS; 2024-10-06)
PROC: B3281ZZ Computerized Tomography (CT Scan) of Bilateral Internal Carotid Arteries using Low Osmolar Contrast (ICD-10-PCS; 2024-10-06)
DX: I63.9 Cerebral infarction, unspecified (principal); F10.90 Alcohol use, unspecified, uncomplicated; F15.129 Other stimulant abuse with intoxication, unspecified; Z66 Do not resuscitate; R29.702 NIHSS score 2; J44.9 Chronic obstructive pulmonary disease, unspecified; I10 Essential (primary) hypertension; H51.22 Internuclear ophthalmoplegia, left eye; Z59.00 Homelessness unspecified
CPT/HCPCS: 36415; 70450; 70496; 70498; 70551; 71045; 80048; 80053; 80061; 80305; 80320; 81003; 82150; 82948; 83036; 83690; 83735; 83880; 84100; 84443; 84484; 85025; 85610; 85730; 87081; 92508; 92616; 93005; 93306; 94760; 96360; 97110; 97116; 97161; 97530; 99291; A6212; G0378; J2060; J7030; Q9967

== ENCOUNTER 2024-10-25 10:31 | Emergency (ER) | payer MEDICAID ==
[~2024-10-25] VITALS: Ht 167.6 cm; Wt 88.8 kg
[~2024-10-25 10:31] MED LIST changes: +ASPI-1071 PO; +ATOR20TA66 PO; +CLOP75TA34 PO; +HYDR25TA5 PO; +NOR5T PO
--- NOTE | 2024-10-25 10:45 | Physician Documentation ---
History of Present Illness ~ Chief Complaint: Numbness Stated Complaint: ETOH LEFT SIDE WEAKNESS Time Seen by MD: 10:34 Primary Medical Doctor: NONE Source: patient, EMS, EMS notes reviewed Mode of Arrival: EMS HPI Chief Complaint: Slurred speech, left facial droop Caveat: Patient intoxicated Independent Historians: Paramedics History of Present Illness: Patient is a 59-year-old man brought in from the [facility] here in [place] by paramedics. Patient [place] Patient has been drinking 13 shots of hard alcohol. Thirteen little empty bottles were found next to him. A bystander thought he was having a stroke because of his slurred speech and left facial droop. Review of systems: All systems were reviewed and are negative except for what is indicated in the history of present illness. 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, Left intranuclear ophthalmoplegia, HTN, COPD, alcoholism Past Surgical History: Noncontributory Social History: Homelessness, daily alcohol use, methamphetamine use, tobacco use Medications: Reviewed as documented Nursing Notes Allergies: Reviewed as documented in Nursing Notes Medication Reconciliation Allergies: Coded Allergies: No Known Allergies (Unverified , 08/12/24) Scheduled Albuterol Sulfate (Ventolin Hfa), 2 PUFFS INH Q4HPRN Amlodipine Besylate (Amlodipine Besylate), 10 MG PO DAILY Aspirin (Ecotrin*), 1 TAB PO DAILY Atorvastatin Calcium (Atorvastatin Calcium), 80 MG PO DAILY Clopidogrel Bisulfate (Clopidogrel), 75 MG PO DAILY Hydrochlorothiazide (Hydrochlorothiazide), 0.5 TAB PO DAILY Lisinopril (Lisinopril), 1 TAB PO DAILY Past Medical History Past Medical History: No Pertinent History Past Surgical History: no surgical history Drug Use: none Lives In: Home Review of Systems All Other Systems at this time: Reviewed and Negative ROS Patient denies any other acute symptoms other than above. All other systems are negative Physical Exam Vital Signs: RN Vital Signs have been reviewed: Yes, Temperature: 98.3, Source: Oral, Heart Rate: 79, Respiratory Rate: 12, BP: 167/110, Pulse Oximetry: 100, Weight: 88.800 Oxygen Flow Rate: 0 Pulse Oximetry Reflects: adequate oxygenation General Appearance General Appearance: No distress, poor hygiene, disheveled HEENT: Normal OP, moist oral mucosa, PERRL, EOMI, left facial droop Neck: supple, normal ROM, trachea midline Pulmonary: No respiratory distress, CTA, BS equal Cardiac: RRR, no murmur, rub or gallop, GI: nondistended, soft, nontender, normal bowel sounds, no guarding, no rebound Extremities: normal ROM, no swelling, non-tender Skin: intact, dry, warm, no rashes Neuro: AAOx3, slurred speech, no pronator drift, equal materials scheduler, patient able to lift each leg off of the stretcher against gravity, decreased sensation to left face Psych: normal affect, good eye contact, no apparent hallucination, normal speech Progress Results/Orders Results/Orders Orders - JESSICA YANG MD Urinalysis, Cult If Indicated (10/25/24 10:38) Chest,Single View (10/25/24 10:48) Ct Head (10/25/24 11:00) Drug Screen, Urine (10/25/24 10:38) Monitor (10/25/24 10:38) Saline Lock (10/25/24 10:38) Hs Troponin I W Calculations (10/25/24 13:38) Completed Orders - JESSICA YANG MD Electrocardiogram (10/25/24 10:38) Cbc/Diff (10/25/24 10:38) Chest,Single View (10/25/24 10:48) Ct Head (10/25/24 11:00) Ethanol (10/25/24 10:38) Hs Troponin I W Calculations (10/25/24 10:38) Hs Troponin I W Calculations (10/25/24 12:38) CMP (10/25/24 10:38) Normal Saline 1000ml (0.9% Sodium Chlori (10/25/24 13:20) Medications Received in ER Medications (Trade) Dose Ordered Sig/Vic Route PRN Reason Start Time Stop Time Status Last Admin Dose Admin (0.9% sodium chloride (NS) 1000ml IV soln) 1,000 ml ONCE ONCE IVB 10/25/24 13:20 10/25/24 13:21 DC 10/25/24 14:04 1,000 ML Vital Signs 10/25/24 10/25/24 10/25/24 10/25/24 10:36 10:57 11:21 12:02 Temp 98.3 98.3 98.3 Pulse 79 77 78 Resp 12 16 14 16 B/P (MAP) 167/110 167/113 (131) 174/111 (132) Pulse Ox 100 96 97 O2 Flow Rate 0 0 0 10/25/24 10/25/24 10/25/24 10/25/24 14:08 15:21 16:27 16:28 Temp 98.3 98.3 Pulse 75 83 83 83 Resp 19 14 16 16 B/P (MAP) 136/100 (112) 180/110 (133) 191/116 (141) 191/116 Pulse Ox 99 97 99 99 O2 Flow Rate 0 0 0 Laboratory Tests Test 10/25/24 10:58 10/25/24 12:11 White Blood Count 7.1 Red Blood Count 4.21 L Hemoglobin 13.1 L Hematocrit 38.5 L Mean Corpuscular Volume 91.3 Mean Corpuscular Hemoglobin 31.1 H Mean Corpuscular Hemoglobin Concent 34.1 Red Cell Distribution Width 13.2 Platelet Count 376 Mean Platelet Volume 6.8 L Neutrophils (%) (Auto) 67.8 Lymphocytes (%) (Auto) 25.5 Monocytes (%) (Auto) 5.4 Eosinophils (%) (Auto) 0.5 Basophils (%) (Auto) 0.8 Neutrophils # (Auto) 4.8 Lymphocytes # (Auto) 1.8 Monocytes # (Auto) 0.4 Eosinophils # (Auto) 0.0 Basophils # (Auto) 0.1 CBC Comment Sodium Level 146 H Potassium Level 3.3 L Chloride Level 107 Carbon Dioxide Level 27.1 Anion Gap 12 Blood Urea Nitrogen 11 Creatinine 0.87 Estimated GFR/1.73 m2 90 BUN/Creatinine Ratio 12.6 Glucose Level 102 Calcium Level 8.2 L Total Bilirubin 0.2 Aspartate Amino Transf (AST/SGOT) 18 Alanine Aminotransferase (ALT/SGPT) 30 Alkaline Phosphatase 114 Troponin I High Sensitivity 9 9 Total Protein 6.9 Albumin 3.5 Globulin 3.4 Albumin/Globulin Ratio 1.0 L Chemistry Comments Ethyl Alcohol Level 199 H Troponin I High Sens Percent Delta 0 Troponin I Hi Sens Absolute Change 0 Medical Decision Making Additional info obtained from: old records Findings Differential diagnosis includes but is not limited to: Ischemic CVA, hemorrhagic CVA, alcohol intoxication, polysubstance abuse, electrolyte abnormalities, acute kidney injury EKG independent interpretation: Performed at 10:49 a.m.. Normal sinus rhythm, heart rate 77, normal axis, normal ST segments Chest x-ray, single view, indication: Tachycardia, alcohol intoxication Independent interpretation: Lungs are clear, normal mediastinum, normal cardiac silhouette Laboratory data independent interpretation: CBC: Unremarkable, mild anemia with a hemoglobin of 13.1 CMP: Mild hyponatremia with a sodium of 146 and mild hypokalemia with a potassium of 3.3, otherwise unremarkable Toxicology: 1st troponin: 9 2nd troponin: 9 Oncology: blood alcohol of 199 Emergency department course/medical decision-making: Patient presents with alcohol intoxication and left facial droop. Medical records reviewed that the patient was admitted October 06 for an acute stroke and at that time had some left facial droop. Patient does not appear to have any n ew neurological symptoms. Patient also had [id number] dysarthria. In addition the patient's slurred speech here today may be secondary to his alcohol intoxication. Patient is thought to be stable for discharge. No acute medical or surgical emergency has been identified. Departure Time of Disposition: 13:15 Disposition: 01 HOME / SELF CARE / HOMELESS Impression: Primary Impression: Alcoholic intoxication Qualified Codes: F10.920 - Alcohol use, unspecified with intoxication, uncomplicated Additional Impression: Dehydration Condition: Improved Discharge Instructions: Alcohol Intoxication, [id number] Education Educated: Patient Educated regarding: diagnosis, treatment Signature Scribe Signature: No scribe Attestation: No scribe JESSICA YANG MD Oct 25, 2024 10:45
--- NOTE | 2024-10-25 10:52 | ELECTROCARDIOGRAPH REPORT ---
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 Wilfrido Brooks Measurements Intervals [place] Rate: 77 P: 71 OR: 159 QRS: 36 QRSD: 111 T: 53 QT: 405 QTc: 459 Interpretive Statements Sinus rhythm Electronically Signed On 10-26-2024 18:21:[address] Wilfrido Brooks Please click the below link to view image of tracing.
--- NOTE | 2024-10-25 10:59 | RADIOLOGY REPORT ---
EXAM: DI CHEST,SINGLE VIEW Indication: aloc Technique: Single frontal view of the chest was obtained Comparison: DI CHEST,SINGLE VIEW on DOS: 10/06/24, DI CHEST,SINGLE VIEW on DOS: 08/12/24, DI CHEST,SINGLE VIEW on DOS: 03/30/24 FINDINGS: Lines and Tubes: None Lungs: No focal consolidation. Pleura: No effusion. No pneumothorax. Cardiomediastinal contours: Unremarkable. Atherosclerotic vascular calcifications of the thoracic ao rta are noted. Bones: No acute osseous abnormality. IMPRESSION: No acute cardiopulmonary disease.
[2024-10-25 11:10] LABS: MEAN PLATELET VOLUME 6.8 FL (7.4-10.4); RED CELL DISTRIBUTION WIDTH 13.2 % (11.5-14.5)
[2024-10-25 11:24] LABS: CREATININE 0.87 MG/DL (0.60-1.10); ETHANOL 199 MG/DL (<10); TOTAL CARBON DIOXIDE 27.1 MMOL/L (24-32); eCRCL 83 ML/MIN; eGFR 90 ML/MIN
--- NOTE | 2024-10-25 11:49 | RADIOLOGY REPORT ---
EXAM: CT CT HEAD INDICATION: aloc TECHNIQUE: CT of the head without intravenous contrast. Radiation Dose : 1. Head: CT Dose: CTDI volume is 62 mGy. Dose-length product is 977 mGy*cm The dose indicators for CT are the volume Computed Tomography (CT) Dose Index (CTDIvol) and the Dose Length Product (DLP), and are measured in units of mGy and mGy-cm, respectively. These indicators are not patient dose, but values generated from the CT scanner acquisition factors. The report includes radiation exposure data for exposures received during this examination. COMPARISON: MR MRI HEAD on DOS: 10/07/24, CT CT STROKE ALERT on DOS: 10/06/24 FINDINGS: There is no evidence of acute intracranial hemorrhage, extra-axial collection, mass effect, midline s hift, herniation or hydrocephalus. The ventricles, sulci and cisterns are age appropriate. The day-white differentiation is intact. Patchy periventricular and subcortical white matter hypoattenuation is nonspecific but may be related to small vessel ischemic disease. The visualized paranasal sinuses and mastoid air cells are clear. The surrounding soft tissues and osseous structures are unremarkable. IMPRESSION: No acute intracranial abnormality. Radiation optimization: All CT scans at this facility use at least one of these dose optimization ruby hniques: automated exposure control mA and/or kV adjustment per patient size (includes targeted exam s where dose is matched to clinical indication) or iterative reconstruction.
[2024-10-25] MEDS: normal saline 1000ML IV soln IVB ONE (14:04)
[2024-10-25 15:21] VITALS: TEMP 98.3
[2024-10-25 16:28] VITALS: BP 191/116; PULSE 83; RESP 16; O2SAT 99
== END 2024-10-25 16:31 | disposition home or self-care (01) ==
LOC: ER 10:31
DX: F10.129 Alcohol abuse with intoxication, unspecified (principal); E86.0 Dehydration; R29.810 Facial weakness; Z86.73 Personal history of transient ischemic attack (TIA), and cerebral infarction without residual deficits; Z59.00 Homelessness unspecified; Y90.6 Blood alcohol level of 120-199 mg/100 ml
CPT/HCPCS: 36415; 70450; 71045; 80053; 80320; 84484; 85025; 93005; 96360; 99285; J7030